=== PATIENT | male | born 1975 | race Caucasian/White ===

== ENCOUNTER 2019-04-17 11:52 | Emergency (ER) | payer SELFPAY ==
[2019-04-17 12:00] VITALS: BP 146/90; PULSE 73; RESP 16; TEMP 36.1; O2SAT 97
--- NOTE | 2019-04-17 12:16 | DI.RAD_ITS ---
SYMPTOMS/DIAGNOSIS: POST 5TH FINGER REDUCTION RIGHT FIFTH FINGER: Two views. There are no priors for comparison. On the lateral view there does appear to be some deformity involving the head of the proximal phalanx of the right little finger. This may represent a nondisplaced fracture. This may also be artifact from patient positioning. No other fracture or dislocation is seen. There is soft tissue swelling about the little finger. Dystrophic calcifications are seen in the soft tissues adjacent to the right fifth metacarpal. A follow up examination of the right fifth finger should be considered for further evaluation.
[2019-04-17 12:45] LABS: Abs Immature Grans 0.02 k/cumm (0.0-0.09); Absolute Basophil Count 0.03 k/cumm (0.0-0.2); Absolute Eosinophil Count 0.13 k/cumm (0.0-0.7); Absolute Lymphocyte Count 1.24 k/cumm (1.2-3.4); Absolute Monocyte Count 0.38 k/cumm (0.11-0.7); Absolute Neutrophil Count 6.41 k/cumm (1.2-6.7); Basophils % 0.4; Eosinophils % 1.6; HCT 40.8 % (40.0-50.0); HGB 14.2 g/dL (13.5-17.5); Immature Grans % 0.2; Lymphocytes % 15.1; Mean Corp. HGB Concentration 34.8 g/dL (32.0-36.0); Mean Corpuscular Hemoglobin 30.5 pg (27.0-33.0); Mean Corpuscular Volume 87.6 fL (80-95); Mean Platelet Volume 9.7 fL (8.0-11.0); Monocytes % 4.6; Neutrophils % 78.1; Platelet Count 273 x1000/uL (130-400); RBC 4.66 m/cumm (4.50-6.00); RBC Distribution Width 12.6 % (11.8-14.1); White Blood Cell Count 8.21 k/cumm (4.4-10.8)
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
[2019-04-17] MEDS: Omnipaque 350 MG/ML 100 ML BTL IJ (13:00)
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
--- NOTE | 2019-04-17 13:34 | NUR.NOTE ---
Nursing Note: Pt refused tetanus stating he will get it when he returns to [place] because he has no insurance down here. Gave pt the information sheet on tetanus so he is informed.
[2019-04-17 13:41] VITALS: BP 135/74; PULSE 70; RESP 16; O2SAT 99
[2019-04-17 13:46] LABS: ALT 30 U/L (12-78); AST 13 U/L (15-37); Albumin 4.1 g/dL (3.4-5.0); Alkaline Phosphatase 65 U/L (46-116); Anion Gap 9.4 mmol/L (3-11); BUN 29 mg/dL (7-18); Bilirubin, Total 0.6 mg/dL (0.2-1.0); CO2 28.6 mmol/L (21.0-32.0); CREATININE 1.12 mg/dL (0.70-1.30); Calcium 8.8 mg/dL (8.5-10.1); Chloride 104 mmol/L (98-107); Glucose 119 mg/dL (70-100); Lipase 111 U/L (73-393); Potassium 3.9 mmol/L (3.5-5.1); Sodium 142 mmol/L (136-145); Total Protein 7.3 g/dL (6.4-8.2)
--- NOTE | 2019-04-17 13:48 | NUR.NOTE ---
Nursing Note: CT report back. Removed C collar and sat pt up. Pt is feeling stiff. Pt refused icepack
--- NOTE | 2019-04-17 13:50 | NUR.NOTE ---
Nursing Note: CT report back. C collar removed per Dr. Garcia. Pt feeling stiff. offered an icebag pt refused.
[2019-04-17 14:27] VITALS: BP 147/97; PULSE 79; RESP 16; O2SAT 100
== END 2019-04-17 14:26 | disposition home or self-care (01) ==
LOC: ER 14:28
PROVIDERS: Emergency Provider Student in an Organized Health Care Education/Training Program
DX: S63.276A Dislocation of unspecified interphalangeal joint of right little finger, initial encounter (principal); S06.0X0A Concussion without loss of consciousness, initial encounter; S20.412A Abrasion of left back wall of thorax, initial encounter; S00.81XA Abrasion of other part of head, initial encounter; S20.212A Contusion of left front wall of thorax, initial encounter; V18.0XXA Pedal cycle driver injured in noncollision transport accident in nontraffic accident, initial encounter; Y93.55 Activity, bike riding
CPT/HCPCS: 26770; 36415; 73140; 74177; 80053; 83690; 99285; 70450; 71260; 72125; 85025; 99284; J3490